=== PATIENT | male | born 1945 | race Caucasian/White ===

== ENCOUNTER 2018-04-03 09:46 | Emergency (ER) | payer MEDICARE ==
[~2018-04-03] VITALS: Ht 175.3 cm; Wt 93.4 kg
[2018-04-03] MEDS ORDERED: INVOKANA300 MG PO (09:58)
[2018-04-03] MEDS ORDERED: GLIPIZIDE 10 MG10 MG PO (09:58)
[2018-04-03] MEDS ORDERED: XANAX 0.5 MG0.5 MG PO (09:58)
[2018-04-03] MEDS ORDERED: HYDROCODONE-ACE15 ML PO (09:58)
[2018-04-03] MEDS ORDERED: COUMADIN 5 MG TA5 M1 PO (09:59)
[2018-04-03] MEDS ORDERED: LASIX 40 MG TAB40 M2 PO (09:59)
[2018-04-03] MEDS ORDERED: ONGLYZA5 MG PO (09:59)
[2018-04-03] MEDS ORDERED: VESICARE 5 MG TA5 MG PO (09:59)
[2018-04-03] MEDS ORDERED: ALDACTONE50 MG PO (09:59)
[2018-04-03] MEDS ORDERED: ASPIR 8181 MG PO (10:00)
[2018-04-03] MEDS ORDERED: COZAAR 50 MG TA50 M2 PO (10:00)
[2018-04-03] MEDS ORDERED: FLOMAX0.4 MG PO (10:00)
[2018-04-03] MEDS ORDERED: KEFLEX500 M1 PO (10:35)
[2018-04-03 10:46] VITALS: BP 162/83
== END 2018-04-03 10:47 | disposition home or self-care (01) ==
LOC: M.ERS 09:46
DX: L03.115 Cellulitis of right lower limb (principal); E11.9 Type 2 diabetes mellitus without complications; Z96.652 Presence of left artificial knee joint

== ENCOUNTER → 2018-04-19 | Outpatient (CLI) | payer MEDICARE ==
[~2018-04-19] MED LIST: ALDACTONE50 MG PO; ASPIR 8181 MG PO; COUMADIN 5 MG TA5 M1 PO; COZAAR 50 MG TA50 M2 PO; FLOMAX0.4 MG PO; GLIPIZIDE 10 MG10 MG PO; HYDROCODONE-ACE15 ML PO; INVOKANA300 MG PO; KEFLEX500 M1 PO; LASIX 40 MG TAB40 M2 PO; NORCO 7.5-3251 EACH PO; ONGLYZA5 MG PO; VESICARE 5 MG TA5 MG PO; XANAX 0.5 MG0.5 MG PO
== END ==
LOC: M.WC 08:48
DX: E11.622 Type 2 diabetes mellitus with other skin ulcer (principal); L97.212 Non-pressure chronic ulcer of right calf with fat layer exposed; I10 Essential (primary) hypertension; I48.91 Unspecified atrial fibrillation; I25.10 Atherosclerotic heart disease of native coronary artery without angina pectoris; E78.5 Hyperlipidemia, unspecified; M19.90 Unspecified osteoarthritis, unspecified site; Z95.0 Presence of cardiac pacemaker; Z96.652 Presence of left artificial knee joint

== ENCOUNTER → 2018-04-26 | Outpatient (CLI) | payer MEDICARE | LOC: M.WC 03:24 | DX: E11.622 Type 2 diabetes mellitus with other skin ulcer (principal); L97.212 Non-pressure chronic ulcer of right calf with fat layer exposed; I10 Essential (primary) hypertension; I48.91 Unspecified atrial fibrillation; I25.10 Atherosclerotic heart disease of native coronary artery without angina pectoris; E78.5 Hyperlipidemia, unspecified; M19.90 Unspecified osteoarthritis, unspecified site; Z95.0 Presence of cardiac pacemaker; Z96.652 Presence of left artificial knee joint ==

== ENCOUNTER → 2018-04-27 | Outpatient (CLI) | payer MEDICARE | LOC: M.WC 10:00 | DX: E11.622 Type 2 diabetes mellitus with other skin ulcer (principal); L97.212 Non-pressure chronic ulcer of right calf with fat layer exposed; I10 Essential (primary) hypertension; I48.91 Unspecified atrial fibrillation; I25.10 Atherosclerotic heart disease of native coronary artery without angina pectoris; E78.5 Hyperlipidemia, unspecified; M19.90 Unspecified osteoarthritis, unspecified site; Z95.0 Presence of cardiac pacemaker; Z96.652 Presence of left artificial knee joint ==

== ENCOUNTER → 2018-04-29 | Outpatient (CLI) | payer MEDICARE | LOC: M.WC 03:50 | DX: E11.622 Type 2 diabetes mellitus with other skin ulcer (principal); L97.212 Non-pressure chronic ulcer of right calf with fat layer exposed; I10 Essential (primary) hypertension; I25.10 Atherosclerotic heart disease of native coronary artery without angina pectoris; I48.91 Unspecified atrial fibrillation; E78.5 Hyperlipidemia, unspecified; M19.90 Unspecified osteoarthritis, unspecified site; Z95.0 Presence of cardiac pacemaker; Z96.652 Presence of left artificial knee joint ==

== ENCOUNTER → 2018-05-03 | Outpatient (CLI) | payer MEDICARE | LOC: M.WC 04:35 | DX: E11.622 Type 2 diabetes mellitus with other skin ulcer (principal); L97.212 Non-pressure chronic ulcer of right calf with fat layer exposed; I48.91 Unspecified atrial fibrillation; I25.10 Atherosclerotic heart disease of native coronary artery without angina pectoris; I10 Essential (primary) hypertension; E78.5 Hyperlipidemia, unspecified; M19.90 Unspecified osteoarthritis, unspecified site; Z95.0 Presence of cardiac pacemaker; Z96.652 Presence of left artificial knee joint ==

== ENCOUNTER → 2018-05-06 | Outpatient (CLI) | payer MEDICARE | LOC: M.WC 01:50 | DX: E11.622 Type 2 diabetes mellitus with other skin ulcer (principal); L97.212 Non-pressure chronic ulcer of right calf with fat layer exposed; I10 Essential (primary) hypertension; I48.91 Unspecified atrial fibrillation; I25.10 Atherosclerotic heart disease of native coronary artery without angina pectoris; E78.5 Hyperlipidemia, unspecified; M19.90 Unspecified osteoarthritis, unspecified site; Z95.0 Presence of cardiac pacemaker; Z96.652 Presence of left artificial knee joint ==

== ENCOUNTER 2018-05-09 08:00 | Inpatient (IN) | payer MEDICARE ==
[~2018-05-09] VITALS: Ht 175.3 cm; Wt 100.7 kg
[~2018-05-09 08:00] MED LIST changes: -NORCO 7.5-3251 EACH PO
[2018-05-09 10:00] VITALS: BP 142/80
[2018-05-09 10:05] LABS: HEMATOCRIT 39.9 % (42.0-52.0); HEMOGLOBIN 13.2 gm/dL (14.0-18.0); MCH 32.4 pg (26.0-34.0); MCHC 33.1 g/dL (28.0-37.0); MPV 8.1 fl. (7.2-11.1); NUCLEATED RBCS 0 /100WBC; PLATELET COUNT* 247 thou/uL (150-400); RBC 4.08 mil/uL (4.50-6.00); RDW-CV 13.5 % (10.5-14.5)
[2018-05-09 10:12] LABS: INR 2.6; PROTIME 25.4 Seconds (9.20-11.50)
[2018-05-09 10:51] LABS: ALBUMIN 3.1 g/dL (3.4-5.0); CALCIUM 9.6 mg/dL (8.5-10.1); POTASSIUM 4.4 mmol/L (3.5-5.1); TOTAL BILIRUBIN 0.4 mg/dL (<0.1-1.0); TOTAL PROTEIN 6.8 g/dL (6.4-8.2)
[2018-05-09 10:59] LABS: ABSOLUTE MONOCYTES 0.9 thou/uL (0.0-1.2); ABSOLUTE NEUTROPHILS 8.1 thou/uL (1.6-8.1); PLATELET ESTIMATE ADEQUATE
[2018-05-09] MEDS ORDERED: NORCO 7.5-3251 EACH PO (11:06)
--- NOTE | 2018-05-09 14:18 | EKG ---
[place] [address] ELECTROCARDIOGRAM REPORT Name: ERNST ARENAS Room: [address] ADM IN .R.#: [id number] Admission: 05/09/18 Attend Phys: Carlene Bunch MD Discharge: Date of : 43 Report #: [id number] THIS REPORT FOR: //name// [facility] Test Date: 2018-05-09 Test Time: 13:15:08 Pat Name: ERNST ARENAS Department: Room: [address] Gender: M Ribbon Winder: : 1945 Requested By: Elena St Order Number: [id number] Tatiana MD: Colton Christiansen Measurements Intervals [place] Rate: 67 P: 0 MN: 31 QRS: -60 QRSD: 168 T: 116 QT: 452 QTc: 478 Interpretive Statements Ventricular-paced rhythm No further analysis attempted due to paced rhythm No previous ECG available for comparison Electronically Signed On 05-09-2018 14:18:10 CDT by Colton Christiansen [email or web address] <ELECTRONICALLY SIGNED> By: Colton Christiansen MD, [facility] 05/09/18 1418 1315 1315 Colton Christiansen MD, [facility] /EPI
[2018-05-09 14:23] VITALS: BP 143/78
--- NOTE | 2018-05-09 20:00 | NUR ---
RECEIVED REPORT AND ASSUMED CARE OF PT, ASSESSMENT COMPLETED. RT LOWER LEG DRSG DRY AND INTACT. RT FOOT WARM AND MOBILE WITH STRONG PEDAL PULSES. ELEVATED ON PILLOW. TELEMETRY ON SHOWING V-PACED RHYTHM. WILL CONT TO MONITOR AND ASSIST NEEDED.
[2018-05-10] VITALS: BP 126/69
[2018-05-10 04:00] VITALS: BP 105/63; BP 147/70
[2018-05-10 04:47] LABS: INR 2.6; PROTIME 24.9 Seconds (9.20-11.50)
--- NOTE | 2018-05-10 06:30 | NUR ---
AWAKE FREQ DURING NIGHT. STATES RT LEG IS BURNING WITH SHOOTING PAIN. PO PAIN MED GIVEN BUT NOT EFFECTIVE. IV PAIN MED GIVEN WITH SOME RELIEF. VOIDING PER URINAL, STATES HAVING DIFFICULTY USING IT IN BED. NO CHANGE IN ASSESSMENT. TELEMETRY CONT TO SHOW V-PACED. PARTICAL HS GOAL OF SAFETY OBTAINED. HOURLY ROUNDING OBSERVED.
[2018-05-10 07:30] VITALS: BP 150/73
[2018-05-10 11:59] VITALS: BP 141/75
[2018-05-10 12:33] LABS: HEMOGLOBIN 12.4 gm/dL (14.0-18.0); MCHC 33.6 g/dL (28.0-37.0); MPV 7.6 fl. (7.2-11.1); RBC 3.77 mil/uL (4.50-6.00); RDW-CV 13.7 % (10.5-14.5); WBC 10.5 thou/uL (4.0-11.0)
[2018-05-10 12:57] LABS: CALCIUM 8.7 mg/dL (8.5-10.1); CREATININE 0.9 mg/dL (0.6-1.3); POTASSIUM 4.6 mmol/L (3.5-5.1)
[2018-05-10 15:35] VITALS: BP 152/73
[2018-05-10 17:02] VITALS: BP 152/73
[2018-05-10] MEDS ORDERED: KEFLEX500 M1 PO (17:02)
--- NOTE | 2018-05-10 18:01 | NUR ---
RECEIVED DISCHARGE ORDERS PER DR MARTIN. DR POPE WITH SURGERY OK WITH DC TODAY AND INSTRUCTED THE PATIENT TO F/U WITH HIM IN THE WOUND CARE CLINIC ON WEDNESDAY. INFECTIOUS DISEASE OK WITH DC TODAY AND ORDERED ORAL KEFLEX FOR THE PATIENT TO DC HOME WITH. NEW SCRIPT FOR KEFLEX CALLED INTO THE PATIENT'S PHARMACY BY THIS RN. IV DISCONTINUED. WHIZZER REMOVED. DISCHARGE PICTURE TAKEN OF PATIENTS WOUND ON HIS RLE. PATIENT AND HIS SPOUSE DENY ANY QUESTIONS OR CONCERNS AT DISCHARGE. LEAVING VIA WHEELCHAIR ACCOMPANIED BY NURSING STAFF AND HIS SPOUSE.
[2018-05-11 02:07] LABS: GLYCOHEMOGLOBIN (HGB A1C) 6.1 % (4.8-5.6)
--- NOTE | 2018-05-12 19:13 | CON ---
[address] [address] CONSULTATION Name: ERNST CORNELL Room: [address] IN .R.#: [id number] Admission: 05/09/18 Attend Phys: Carlene Bunch MD Discharge: 05/10/18 Date of : 43 Report #: [id number] THIS REPORT FOR: //name// CC: Carlene Cornejo DATE OF SERVICE: 05/09/2018 CONSULTATION: Infectious Diseases. HISTORY OF PRESENT ILLNESS: Mr Cornell is a 72-year-old white male admitted to [facility] earlier today because of cellulitis and wound on the right lower extremity. The patient suffered an abrasion-type injury in the first week of March on his right howard. A concrete gutter runoff scraped down his howard as he was moving the runoff drain. The patient did not think much of it. It bled for a little bit. He put Neosporin and a Band-Aid. In spite of this care, it did not get better. The patient went to the Emergency Room on 04/03/2018 and was given a prescription for Keflex. At that time, the ER described a small open wound with surrounding cellulitis. No drainage. No lymphangitis. The patient did not do better. The antibiotic was changed, I believe, to doxycycline. He was referred to the [facility], where he saw Dr. Le and did a bedside debridement and placement of a VAC. He returned to the [facility] Care Center a week later,and was noted to have excessive debris in the wound. He was admitted to the hospital and underwent a debridement in the operating room earlier today by Dr. St. Infectious Disease evaluation was requested. PAST MEDICAL HISTORY: Past history is significant for diabetes with hypertension, prostatic hypertrophy and anxiety. PAST SURGICAL HISTORY: Includes aortic valve replacement in 1996, a cardiac ablation approximately 10 years later, left knee replacement, pacemaker placement, back surgery x 2 and shoulder surgery. ALLERGIES: The patient is not aware of any drug allergies. MEDICATION RECONCILIATION: His current medications include aspirin 81 mg daily, Lasix 40 mg daily, spironolactone 25 mg daily, tamsulosin 0.4 mg daily, losartan 50 mg daily, Zosyn 3.375 every 8 hours, alprazolam 0.5 mg t.i.d., famotidine 20 mg b.i.d., vancomycin 1 gram b.i.d., warfarin 5 mg daily, glipizide 10 mg b.i.d., sliding scale insulin, p.r.n. morphine, Tylenol and magnesium oxide. FAMILY HISTORY: Noncontributory. SOCIAL HISTORY: The patient is . He has been living with his girlfriend for about the last year. He is retired [id number] [place] [address] CONSULTATION Name: ERNST CORNELL Brianna Room: [address]#: [id number] Admission: 05/09/18 Attend Phys: Carlene Bunch MD Discharge: 05/10/18 Date of : 43 Report #: [id number] He has no history of tobacco use. He had heavy alcohol use, but quit 15 years ago. REVIEW OF SYSTEMS: CONSTITUTIONAL: At this time, the patient says he feels fairly comfortable. He is not complaining of fevers, chills or sweats. SKIN: No skin complaints, except for the right leg as described. ENT: No complaints. CARDIOVASCULAR: The patient denies cough, chest pain or shortness of breath. He denies angina, syncope or palpitations. GASTROINTESTINAL: The patient denies nausea, vomiting, diarrhea or constipation. GENITOURINARY: No complaints. EXTREMITIES: Postoperative discomfort in the right leg. PHYSICAL EXAMINATION: GENERAL: On examination, the patient appears his stated age, alert, oriented, comfortable, not in any distress. VITAL SIGNS: Normal. The patient is afebrile. Blood pressure is 143/78. SKIN: Shows no rash, lesion or exanthem. A surgical wound is on the right lower leg. The surgeon described the postoperative wound as 6 x 7.5 x 0.7 cm, with debridement down to and including tendon. ENT EXAMINATION: Negative. MENTAL STATUS: Normal. NECK: Supple. HEART: Heart sounds S1, S2. Regular rate and rhythm, pacemaker present. Appears unremarkable. Surgical scar is well healed. LUNGS: Clear to anterior auscultation. ABDOMEN: Belly soft, not tender. EXTREMITIES: Excellent pulses. No edema. Surgical dressing is clean, dry and intact. It was not disturbed. LABORATORY DATA: White count is 10.0, hemoglobin 13.2 and platelet 247,000. Electrolytes are normal. BUN 25, creatinine 1.0, and glucose 143. Liver function tests show mild elevation with SGOT 40, SGPT 72 and alkaline phosphatase was normal. Culture from the Wound Care Center, 05/03/2018, grew methicillin-sensitive Staph aureus. Blood cultures x 2 and surgical cultures are pending. IMPRESSION: Traumatic wound with probable hematoma due to anticoagulation and secondary infection due to staph. I suggest we change the antibiotic to cefazolin 2 grams IV every 8 hours and stop the vancomycin and Zosyn. We will not need vancomycin levels. We should have results of cultures in the next 48-72 hours and can adjust the antibiotics if they show anything different than sensitive staph or strep. We will continue [address] [address] CONSULTATION Name: ERNST CORNELL Room: [address] IN [facility]#: [id number] Admission: 05/09/18 Attend Phys: Carlene Bunch MD Discharge: 05/10/18 Date of : 43 Report #: [id number] wound care per Dr. St. He may elect to replace the wound VAC now that the wound has been debrided. The patient should followup with the Wound Care Center for debridement, review of cultures and general assessment. I would like to check a thyroid function as well as hemoglobin A1c to make sure there is no metabolic impediment to wound healing. We are going to also check a zinc level as this could be associated with poor wound healing. I appreciate the opportunity of input in the care of this pleasant gentleman. Thank you for requesting Infectious Disease input. <ELECTRONICALLY SIGNED> By: Bucky Rojas MD 05/12/18 [phone] [id number] Rojas MD /nt
--- NOTE | 2018-05-14 10:06 | PATH ---
[address] [address] PATHOLOGY RPT PROCEDURE Name: ARNULFO CORNELL Room: [address] IN .R.#: [id number] Admission: 05/09/18 Date of : 43 Discharge: 05/10/18 Report #: [id number] Path Case #: [id number] [facility] Accession Number: [id number] . 01 Material submitted: . RIGHT CALF WOUND/TISSUE . 01 Clinical history: . Cellulitis, non healing traumatic wound . 02 Diagnosis: Right calf wound: - Benign skin with nonspecific ulceration, necrosis and acute inflammation in association with severe calcifying arteriosclerosis. . (VICKI:mml; 05/11/18) [facility]/05/11/2018 . 02 Electronically signed: . Christian Larson MD, Pathologist NPI- [id number] . 01 Gross description: . Received in formalin labeled "Arnulfo Cornell, right calf wound," is a segment of dark gordon-brown, granular and indurated skin with a small amount of attached underlying pale yellow, lobulated adipose tissue measuring 3.4 x 2.8 x 0.4 cm in greatest dimensions. Sectioning reveals gordon-brown cut surfaces. Regulatory Affairs Intern tissue is submitted in cassette A1. (DAC; 05/10/2018) XDC/XDC . 02 Pathologist provided ICD-10: I70.232 . 02 CPT . 451116 Performed at: [address], [place] [id number] MD Codey Stewart MD Phone: [phone] Performed at: 02 [facility] [address], [place], [place] [id number] MD Christian Larson MD Phone: [phone]
--- NOTE | 2018-05-23 09:46 | OP ---
[address] [address] OPERATIVE REPORT Name: ERNST ARENAS Room: [address]#: [id number] Admission: 05/09/18 Attend Phys: Carlene Bunch MD Discharge: 05/10/18 Date of : 43 Report #: [id number] THIS REPORT FOR: //name// CC: Carlene Cornejo DATE OF SERVICE: 05/09/2018 PREOPERATIVE DIAGNOSES: Necrotic traumatic wound of the right lower extremity and cellulitis. POSTOPERATIVE DIAGNOSES: Necrotic traumatic wound of the right lower extremity and cellulitis. OPERATIVE PROCEDURE: Excisional debridement down to tendon area 6 x 7.5 x 0.7 cm of the right lower extremity. ANESTHESIA: General endotracheal with 0.5% Marcaine infiltrated around the wound site. DESCRIPTION OF PROCEDURE: The patient was placed under general endotracheal anesthesia and the right lower extremity was carefully prepped and draped and elevated in a sterile fashion. A timeout taken. Antibiotics had already been administered. I began by infiltrating around the proposed operative site with 0.5% Marcaine and with the pickups and a #10 scalpel blade, I sharply debrided this necrotic skin and subcutaneous tissue down to and including a superficial layer of tendon was debrided off of the right medial posterior calf back to healthy bleeding tissue, which was then controlled with cautery. I then irrigated the wound. There was no purulence seen and once the area was sharply debrided, I re-injected a second dose of the 0.5% Marcaine and then packed the wounds with Aquacel sheets and then gauze and then Kerlix ending the operative procedure. Estimated blood loss 5 mL. Sponge and instrument counts correct. The patient was extubated, returned to recovery in stable condition. <ELECTRONICALLY SIGNED> By: Elena St MD 05/23/18 [address] MD /nt
== END 2018-05-10 17:30 | disposition home or self-care (01) | DRG 982 ==
LOC: M.WC 08:00 → M.2W 09:02 → M.WC 05-10 08:00 → M.2W 05-10 17:30
PROVIDERS: Internal Medicine Infectious Disease; Surgery; ADMIT Internal Medicine
PROC: 0LBN0ZZ Excision of Right Lower Leg Tendon, Open Approach (ICD-10-PCS; principal; 2018-05-09)
DX: L03.115 Cellulitis of right lower limb (principal); I96 Gangrene, not elsewhere classified; E44.1 Mild protein-calorie malnutrition; E11.9 Type 2 diabetes mellitus without complications; N40.0 Benign prostatic hyperplasia without lower urinary tract symptoms; F41.9 Anxiety disorder, unspecified; E66.9 Obesity, unspecified; S80.921A Unspecified superficial injury of right lower leg, initial encounter; X58.XXXA Exposure to other specified factors, initial encounter; B95.61 Methicillin susceptible Staphylococcus aureus infection as the cause of diseases classified elsewhere; I10 Essential (primary) hypertension; E78.5 Hyperlipidemia, unspecified; I48.91 Unspecified atrial fibrillation; Z96.649 Presence of unspecified artificial hip joint; Z95.2 Presence of prosthetic heart valve; Z96.652 Presence of left artificial knee joint; Z79.2 Long term (current) use of antibiotics; Z79.01 Long term (current) use of anticoagulants; Z79.899 Other long term (current) drug therapy; Z95.0 Presence of cardiac pacemaker; Z98.1 Arthrodesis status; Z90.49 Acquired absence of other specified parts of digestive tract; Z68.32 Body mass index [BMI] 32.0-32.9, adult; Y93.89 Activity, other specified; Y92.89 Other specified places as the place of occurrence of the external cause; Y99.8 Other external cause status; Z79.4 Long term (current) use of insulin; Z80.8 Family history of malignant neoplasm of other organs or systems; Z82.3 Family history of stroke; Z82.5 Family history of asthma and other chronic lower respiratory diseases; Z82.49 Family history of ischemic heart disease and other diseases of the circulatory system

== ENCOUNTER → 2018-05-12 | Outpatient (CLI) | payer MEDICARE ==
[~2018-05-12] MED LIST changes: +NORCO 7.5-3251 EACH PO
== END ==
LOC: M.WC 09:50
DX: E11.622 Type 2 diabetes mellitus with other skin ulcer (principal); L97.212 Non-pressure chronic ulcer of right calf with fat layer exposed; I10 Essential (primary) hypertension; I48.91 Unspecified atrial fibrillation; I25.10 Atherosclerotic heart disease of native coronary artery without angina pectoris; E78.5 Hyperlipidemia, unspecified; Z95.0 Presence of cardiac pacemaker; Z96.651 Presence of right artificial knee joint

== ENCOUNTER → 2018-05-13 | Outpatient (CLI) | payer MEDICARE | LOC: M.WC 01:48 | DX: E11.622 Type 2 diabetes mellitus with other skin ulcer (principal); L97.212 Non-pressure chronic ulcer of right calf with fat layer exposed; I48.91 Unspecified atrial fibrillation; I25.10 Atherosclerotic heart disease of native coronary artery without angina pectoris; I10 Essential (primary) hypertension; E78.5 Hyperlipidemia, unspecified; M19.90 Unspecified osteoarthritis, unspecified site; Z95.0 Presence of cardiac pacemaker; Z96.651 Presence of right artificial knee joint ==

== ENCOUNTER → 2018-05-16 | Outpatient (CLI) | payer MEDICARE | LOC: M.WC 00:52 | DX: E11.622 Type 2 diabetes mellitus with other skin ulcer (principal); L97.212 Non-pressure chronic ulcer of right calf with fat layer exposed; I48.91 Unspecified atrial fibrillation; I10 Essential (primary) hypertension; I25.10 Atherosclerotic heart disease of native coronary artery without angina pectoris; E78.5 Hyperlipidemia, unspecified; M19.90 Unspecified osteoarthritis, unspecified site; Z95.0 Presence of cardiac pacemaker; Z96.652 Presence of left artificial knee joint ==

== ENCOUNTER → 2018-05-18 | Outpatient (CLI) | payer MEDICARE | LOC: M.WC 04:11 | DX: E11.622 Type 2 diabetes mellitus with other skin ulcer (principal); L97.212 Non-pressure chronic ulcer of right calf with fat layer exposed; I48.91 Unspecified atrial fibrillation; I25.10 Atherosclerotic heart disease of native coronary artery without angina pectoris; I10 Essential (primary) hypertension; E78.5 Hyperlipidemia, unspecified; M19.90 Unspecified osteoarthritis, unspecified site; Z95.1 Presence of aortocoronary bypass graft; Z96.652 Presence of left artificial knee joint ==

== ENCOUNTER → 2018-05-20 | Outpatient (CLI) | payer MEDICARE | LOC: M.WC 01:20 | DX: E11.622 Type 2 diabetes mellitus with other skin ulcer (principal); L97.811 Non-pressure chronic ulcer of other part of right lower leg limited to breakdown of skin; I10 Essential (primary) hypertension; I48.91 Unspecified atrial fibrillation; I25.10 Atherosclerotic heart disease of native coronary artery without angina pectoris; E78.5 Hyperlipidemia, unspecified; M19.90 Unspecified osteoarthritis, unspecified site; Z95.0 Presence of cardiac pacemaker; Z96.652 Presence of left artificial knee joint ==

== ENCOUNTER → 2018-05-23 | Outpatient (CLI) | payer MEDICARE | LOC: M.WC 00:52 | DX: E11.622 Type 2 diabetes mellitus with other skin ulcer (principal); L97.212 Non-pressure chronic ulcer of right calf with fat layer exposed; I10 Essential (primary) hypertension; I48.91 Unspecified atrial fibrillation; I25.10 Atherosclerotic heart disease of native coronary artery without angina pectoris; E78.5 Hyperlipidemia, unspecified; M19.90 Unspecified osteoarthritis, unspecified site; Z95.0 Presence of cardiac pacemaker; Z96.652 Presence of left artificial knee joint ==

== ENCOUNTER → 2018-05-25 | Outpatient (CLI) | payer MEDICARE | LOC: M.WC 03:20 | DX: E11.622 Type 2 diabetes mellitus with other skin ulcer (principal); L97.811 Non-pressure chronic ulcer of other part of right lower leg limited to breakdown of skin; I10 Essential (primary) hypertension; I48.91 Unspecified atrial fibrillation; I25.10 Atherosclerotic heart disease of native coronary artery without angina pectoris; E78.5 Hyperlipidemia, unspecified; M19.90 Unspecified osteoarthritis, unspecified site; Z96.652 Presence of left artificial knee joint; Z95.0 Presence of cardiac pacemaker ==

== ENCOUNTER → 2018-05-27 | Outpatient (CLI) | payer MEDICARE | LOC: M.WC 01:58 | DX: E11.622 Type 2 diabetes mellitus with other skin ulcer (principal); L97.212 Non-pressure chronic ulcer of right calf with fat layer exposed; I48.91 Unspecified atrial fibrillation; I25.10 Atherosclerotic heart disease of native coronary artery without angina pectoris; I10 Essential (primary) hypertension; E78.5 Hyperlipidemia, unspecified; M19.90 Unspecified osteoarthritis, unspecified site; Z96.652 Presence of left artificial knee joint ==

== ENCOUNTER → 2018-05-30 | Outpatient (CLI) | payer MEDICARE | LOC: M.WC 06:14 | DX: E11.622 Type 2 diabetes mellitus with other skin ulcer (principal); L97.212 Non-pressure chronic ulcer of right calf with fat layer exposed; I48.91 Unspecified atrial fibrillation; I25.10 Atherosclerotic heart disease of native coronary artery without angina pectoris; I10 Essential (primary) hypertension; E78.5 Hyperlipidemia, unspecified; M19.90 Unspecified osteoarthritis, unspecified site; Z96.652 Presence of left artificial knee joint ==

== ENCOUNTER → 2018-06-02 | Outpatient (CLI) | payer MEDICARE | LOC: M.WC 02:23 | DX: E11.622 Type 2 diabetes mellitus with other skin ulcer (principal); L97.212 Non-pressure chronic ulcer of right calf with fat layer exposed; E78.5 Hyperlipidemia, unspecified; I48.91 Unspecified atrial fibrillation; I25.10 Atherosclerotic heart disease of native coronary artery without angina pectoris; I10 Essential (primary) hypertension; M19.90 Unspecified osteoarthritis, unspecified site; N40.0 Benign prostatic hyperplasia without lower urinary tract symptoms; Z96.652 Presence of left artificial knee joint ==

== ENCOUNTER → 2018-06-06 | Outpatient (CLI) | payer MEDICARE | LOC: M.WC 01:57 | DX: E11.622 Type 2 diabetes mellitus with other skin ulcer (principal); L97.212 Non-pressure chronic ulcer of right calf with fat layer exposed; I48.91 Unspecified atrial fibrillation; I25.10 Atherosclerotic heart disease of native coronary artery without angina pectoris; I10 Essential (primary) hypertension; E78.5 Hyperlipidemia, unspecified; M19.90 Unspecified osteoarthritis, unspecified site; Z96.652 Presence of left artificial knee joint ==

== ENCOUNTER → 2018-06-08 | Outpatient (CLI) | payer MEDICARE | LOC: M.WC 04:34 | DX: E11.622 Type 2 diabetes mellitus with other skin ulcer (principal); L97.212 Non-pressure chronic ulcer of right calf with fat layer exposed; I48.91 Unspecified atrial fibrillation; I25.10 Atherosclerotic heart disease of native coronary artery without angina pectoris; E78.5 Hyperlipidemia, unspecified; I10 Essential (primary) hypertension; M19.90 Unspecified osteoarthritis, unspecified site; Z96.652 Presence of left artificial knee joint ==

== ENCOUNTER → 2018-06-10 | Outpatient (CLI) | payer MEDICARE | LOC: M.WC 01:20 | DX: E11.622 Type 2 diabetes mellitus with other skin ulcer (principal); L97.212 Non-pressure chronic ulcer of right calf with fat layer exposed; I48.91 Unspecified atrial fibrillation; I25.10 Atherosclerotic heart disease of native coronary artery without angina pectoris; I10 Essential (primary) hypertension; E78.5 Hyperlipidemia, unspecified; Z96.652 Presence of left artificial knee joint ==

== ENCOUNTER → 2018-06-14 | Outpatient (CLI) | payer MEDICARE | LOC: M.WC 03:40 | DX: E11.622 Type 2 diabetes mellitus with other skin ulcer (principal); L97.212 Non-pressure chronic ulcer of right calf with fat layer exposed; I48.91 Unspecified atrial fibrillation; I10 Essential (primary) hypertension; I25.10 Atherosclerotic heart disease of native coronary artery without angina pectoris; E78.5 Hyperlipidemia, unspecified; M19.90 Unspecified osteoarthritis, unspecified site; Z96.652 Presence of left artificial knee joint ==

== ENCOUNTER → 2018-06-16 | Outpatient (CLI) | payer MEDICARE | LOC: M.WC 08:00 | DX: E11.622 Type 2 diabetes mellitus with other skin ulcer (principal); L97.212 Non-pressure chronic ulcer of right calf with fat layer exposed; I48.91 Unspecified atrial fibrillation; I25.10 Atherosclerotic heart disease of native coronary artery without angina pectoris; I10 Essential (primary) hypertension; E78.5 Hyperlipidemia, unspecified; M19.90 Unspecified osteoarthritis, unspecified site; Z96.652 Presence of left artificial knee joint ==

== ENCOUNTER → 2018-06-20 | Outpatient (CLI) | payer MEDICARE | LOC: M.WC 01:26 | DX: E11.622 Type 2 diabetes mellitus with other skin ulcer (principal); L97.212 Non-pressure chronic ulcer of right calf with fat layer exposed; I87.2 Venous insufficiency (chronic) (peripheral); I48.91 Unspecified atrial fibrillation; I25.10 Atherosclerotic heart disease of native coronary artery without angina pectoris; I10 Essential (primary) hypertension; E78.5 Hyperlipidemia, unspecified; M19.90 Unspecified osteoarthritis, unspecified site; Z95.0 Presence of cardiac pacemaker; Z95.4 Presence of other heart-valve replacement; Z96.652 Presence of left artificial knee joint ==

== ENCOUNTER → 2018-06-22 | Outpatient (CLI) | payer MEDICARE | LOC: M.WC 03:02 | DX: E11.622 Type 2 diabetes mellitus with other skin ulcer (principal); L97.212 Non-pressure chronic ulcer of right calf with fat layer exposed; E78.5 Hyperlipidemia, unspecified; I48.91 Unspecified atrial fibrillation; I25.10 Atherosclerotic heart disease of native coronary artery without angina pectoris; I10 Essential (primary) hypertension; M19.90 Unspecified osteoarthritis, unspecified site; Z96.652 Presence of left artificial knee joint ==

== ENCOUNTER → 2018-06-24 | Outpatient (CLI) | payer MEDICARE | LOC: M.WC 02:53 | DX: E11.622 Type 2 diabetes mellitus with other skin ulcer (principal); L97.212 Non-pressure chronic ulcer of right calf with fat layer exposed; E78.5 Hyperlipidemia, unspecified; I48.91 Unspecified atrial fibrillation; I25.10 Atherosclerotic heart disease of native coronary artery without angina pectoris; I10 Essential (primary) hypertension; M19.90 Unspecified osteoarthritis, unspecified site ==

== ENCOUNTER → 2018-06-27 | Outpatient (CLI) | payer MEDICARE | LOC: M.WC 01:41 | DX: E11.622 Type 2 diabetes mellitus with other skin ulcer (principal); L97.212 Non-pressure chronic ulcer of right calf with fat layer exposed; E78.5 Hyperlipidemia, unspecified; I48.91 Unspecified atrial fibrillation; I25.10 Atherosclerotic heart disease of native coronary artery without angina pectoris; I10 Essential (primary) hypertension; M19.90 Unspecified osteoarthritis, unspecified site; Z96.652 Presence of left artificial knee joint ==

== ENCOUNTER → 2018-06-30 | Outpatient (CLI) | payer MEDICARE | LOC: M.WC 01:49 | DX: E11.622 Type 2 diabetes mellitus with other skin ulcer (principal); L97.212 Non-pressure chronic ulcer of right calf with fat layer exposed; E78.5 Hyperlipidemia, unspecified; I48.91 Unspecified atrial fibrillation; I25.10 Atherosclerotic heart disease of native coronary artery without angina pectoris; I10 Essential (primary) hypertension; M19.90 Unspecified osteoarthritis, unspecified site; Z96.652 Presence of left artificial knee joint ==

== ENCOUNTER → 2018-07-04 | Outpatient (CLI) | payer MEDICARE | LOC: M.WC 01:06 | DX: E11.622 Type 2 diabetes mellitus with other skin ulcer (principal); L97.212 Non-pressure chronic ulcer of right calf with fat layer exposed; E78.5 Hyperlipidemia, unspecified; I48.91 Unspecified atrial fibrillation; I25.10 Atherosclerotic heart disease of native coronary artery without angina pectoris; I10 Essential (primary) hypertension; M19.90 Unspecified osteoarthritis, unspecified site; Z96.652 Presence of left artificial knee joint ==

== ENCOUNTER → 2018-07-07 | Outpatient (CLI) | payer MEDICARE | LOC: M.WC 04:49 | DX: E11.622 Type 2 diabetes mellitus with other skin ulcer (principal); L97.212 Non-pressure chronic ulcer of right calf with fat layer exposed; E78.5 Hyperlipidemia, unspecified; I48.91 Unspecified atrial fibrillation; I25.10 Atherosclerotic heart disease of native coronary artery without angina pectoris; I10 Essential (primary) hypertension; M19.90 Unspecified osteoarthritis, unspecified site; Z96.652 Presence of left artificial knee joint ==

== ENCOUNTER → 2018-07-11 | Outpatient (CLI) | payer MEDICARE | LOC: M.WC 00:49 | DX: E11.622 Type 2 diabetes mellitus with other skin ulcer (principal); L97.212 Non-pressure chronic ulcer of right calf with fat layer exposed; I48.91 Unspecified atrial fibrillation; I25.10 Atherosclerotic heart disease of native coronary artery without angina pectoris; I10 Essential (primary) hypertension; E78.5 Hyperlipidemia, unspecified; M19.90 Unspecified osteoarthritis, unspecified site; Z96.652 Presence of left artificial knee joint ==

== ENCOUNTER → 2018-07-14 | Outpatient (CLI) | payer MEDICARE | LOC: M.WC 04:56 | DX: E11.622 Type 2 diabetes mellitus with other skin ulcer (principal); L97.812 Non-pressure chronic ulcer of other part of right lower leg with fat layer exposed; I48.91 Unspecified atrial fibrillation; I25.10 Atherosclerotic heart disease of native coronary artery without angina pectoris; I10 Essential (primary) hypertension; E78.5 Hyperlipidemia, unspecified; M19.90 Unspecified osteoarthritis, unspecified site; Z96.652 Presence of left artificial knee joint ==

== ENCOUNTER → 2018-07-18 | Outpatient (CLI) | payer MEDICARE | LOC: M.WC 01:20 | DX: E11.622 Type 2 diabetes mellitus with other skin ulcer (principal); L97.212 Non-pressure chronic ulcer of right calf with fat layer exposed; E78.5 Hyperlipidemia, unspecified; I48.91 Unspecified atrial fibrillation; I25.10 Atherosclerotic heart disease of native coronary artery without angina pectoris; I10 Essential (primary) hypertension; M19.90 Unspecified osteoarthritis, unspecified site; Z96.652 Presence of left artificial knee joint ==

== ENCOUNTER → 2018-07-21 | Outpatient (CLI) | payer MEDICARE | LOC: M.WC 05:10 | DX: E11.622 Type 2 diabetes mellitus with other skin ulcer (principal); L97.212 Non-pressure chronic ulcer of right calf with fat layer exposed; E78.5 Hyperlipidemia, unspecified; I48.91 Unspecified atrial fibrillation; I25.10 Atherosclerotic heart disease of native coronary artery without angina pectoris; I10 Essential (primary) hypertension; M19.90 Unspecified osteoarthritis, unspecified site; Z96.652 Presence of left artificial knee joint ==

== ENCOUNTER → 2018-07-25 | Outpatient (CLI) | payer MEDICARE | LOC: M.WC 02:00 | DX: E11.622 Type 2 diabetes mellitus with other skin ulcer (principal); L97.212 Non-pressure chronic ulcer of right calf with fat layer exposed; E78.5 Hyperlipidemia, unspecified; I48.91 Unspecified atrial fibrillation; I25.10 Atherosclerotic heart disease of native coronary artery without angina pectoris; I10 Essential (primary) hypertension; M19.90 Unspecified osteoarthritis, unspecified site; Z96.652 Presence of left artificial knee joint ==

== ENCOUNTER → 2018-07-28 | Outpatient (CLI) | payer MEDICARE | LOC: M.WC 05:55 | DX: E11.622 Type 2 diabetes mellitus with other skin ulcer (principal); L97.212 Non-pressure chronic ulcer of right calf with fat layer exposed; I48.91 Unspecified atrial fibrillation; I25.10 Atherosclerotic heart disease of native coronary artery without angina pectoris; I10 Essential (primary) hypertension; M19.90 Unspecified osteoarthritis, unspecified site; Z96.652 Presence of left artificial knee joint ==

== ENCOUNTER → 2018-08-01 | Outpatient (CLI) | payer MEDICARE | LOC: M.WC 01:45 | DX: E11.622 Type 2 diabetes mellitus with other skin ulcer (principal); L97.812 Non-pressure chronic ulcer of other part of right lower leg with fat layer exposed; E78.5 Hyperlipidemia, unspecified; I48.91 Unspecified atrial fibrillation; I25.10 Atherosclerotic heart disease of native coronary artery without angina pectoris; I10 Essential (primary) hypertension; M19.90 Unspecified osteoarthritis, unspecified site; Z96.652 Presence of left artificial knee joint ==

== ENCOUNTER → 2018-08-04 | Outpatient (CLI) | payer MEDICARE | LOC: M.WC 04:38 | DX: E11.622 Type 2 diabetes mellitus with other skin ulcer (principal); L97.212 Non-pressure chronic ulcer of right calf with fat layer exposed; I48.91 Unspecified atrial fibrillation; I25.10 Atherosclerotic heart disease of native coronary artery without angina pectoris; I10 Essential (primary) hypertension; E78.5 Hyperlipidemia, unspecified; M19.90 Unspecified osteoarthritis, unspecified site; Z96.652 Presence of left artificial knee joint ==

== ENCOUNTER → 2018-08-08 | Outpatient (CLI) | payer MEDICARE | LOC: M.WC 01:23 | DX: E11.622 Type 2 diabetes mellitus with other skin ulcer (principal); L97.212 Non-pressure chronic ulcer of right calf with fat layer exposed; E78.5 Hyperlipidemia, unspecified; I48.91 Unspecified atrial fibrillation; I25.10 Atherosclerotic heart disease of native coronary artery without angina pectoris; I10 Essential (primary) hypertension; M19.90 Unspecified osteoarthritis, unspecified site; Z96.652 Presence of left artificial knee joint ==

== ENCOUNTER → 2018-08-15 | Outpatient (CLI) | payer MEDICARE | LOC: M.WC 00:59 | DX: E11.622 Type 2 diabetes mellitus with other skin ulcer (principal); L97.212 Non-pressure chronic ulcer of right calf with fat layer exposed; E78.5 Hyperlipidemia, unspecified; I48.91 Unspecified atrial fibrillation; I25.10 Atherosclerotic heart disease of native coronary artery without angina pectoris; I10 Essential (primary) hypertension; M19.90 Unspecified osteoarthritis, unspecified site; Z96.652 Presence of left artificial knee joint ==

== ENCOUNTER → 2018-08-22 | Outpatient (CLI) | payer MEDICARE | LOC: M.WC 01:21 | DX: E11.622 Type 2 diabetes mellitus with other skin ulcer (principal); L97.212 Non-pressure chronic ulcer of right calf with fat layer exposed; E78.5 Hyperlipidemia, unspecified; I48.91 Unspecified atrial fibrillation; I25.10 Atherosclerotic heart disease of native coronary artery without angina pectoris; I10 Essential (primary) hypertension; M19.90 Unspecified osteoarthritis, unspecified site; Z96.652 Presence of left artificial knee joint ==

== ENCOUNTER → 2018-08-29 | Outpatient (CLI) | payer MEDICARE | LOC: M.WC 00:59 | DX: E11.622 Type 2 diabetes mellitus with other skin ulcer (principal); L97.812 Non-pressure chronic ulcer of other part of right lower leg with fat layer exposed; I48.91 Unspecified atrial fibrillation; I25.10 Atherosclerotic heart disease of native coronary artery without angina pectoris; I10 Essential (primary) hypertension; E78.5 Hyperlipidemia, unspecified; M19.90 Unspecified osteoarthritis, unspecified site; Z96.652 Presence of left artificial knee joint ==

== ENCOUNTER → 2018-09-05 | Outpatient (CLI) | payer MEDICARE | LOC: M.WC 07:49 | DX: E11.622 Type 2 diabetes mellitus with other skin ulcer (principal); L97.212 Non-pressure chronic ulcer of right calf with fat layer exposed; E78.5 Hyperlipidemia, unspecified; I48.91 Unspecified atrial fibrillation; I25.10 Atherosclerotic heart disease of native coronary artery without angina pectoris; I10 Essential (primary) hypertension; M19.90 Unspecified osteoarthritis, unspecified site; Z96.652 Presence of left artificial knee joint ==

== ENCOUNTER → 2018-09-12 | Outpatient (CLI) | payer MEDICARE | LOC: M.WC 00:56 | DX: E11.622 Type 2 diabetes mellitus with other skin ulcer (principal); L97.212 Non-pressure chronic ulcer of right calf with fat layer exposed; E78.5 Hyperlipidemia, unspecified; I48.91 Unspecified atrial fibrillation; I25.10 Atherosclerotic heart disease of native coronary artery without angina pectoris; I10 Essential (primary) hypertension; M19.90 Unspecified osteoarthritis, unspecified site; Z96.652 Presence of left artificial knee joint ==

== ENCOUNTER → 2018-09-19 | Outpatient (CLI) | payer MEDICARE | LOC: M.WC 02:31 | DX: E11.622 Type 2 diabetes mellitus with other skin ulcer (principal); L97.212 Non-pressure chronic ulcer of right calf with fat layer exposed; E78.5 Hyperlipidemia, unspecified; I48.91 Unspecified atrial fibrillation; I25.10 Atherosclerotic heart disease of native coronary artery without angina pectoris; I10 Essential (primary) hypertension; M19.90 Unspecified osteoarthritis, unspecified site; Z96.652 Presence of left artificial knee joint ==

== ENCOUNTER → 2018-09-26 | Outpatient (CLI) | payer MEDICARE | LOC: M.WC 00:51 | DX: E11.622 Type 2 diabetes mellitus with other skin ulcer (principal); L97.212 Non-pressure chronic ulcer of right calf with fat layer exposed; I10 Essential (primary) hypertension; I48.91 Unspecified atrial fibrillation; I25.10 Atherosclerotic heart disease of native coronary artery without angina pectoris; M19.90 Unspecified osteoarthritis, unspecified site ==

== ENCOUNTER → 2018-10-05 | Outpatient (CLI) | payer MEDICARE | LOC: M.WC 01:49 | DX: E11.622 Type 2 diabetes mellitus with other skin ulcer (principal); L97.212 Non-pressure chronic ulcer of right calf with fat layer exposed; L97.811 Non-pressure chronic ulcer of other part of right lower leg limited to breakdown of skin; E78.5 Hyperlipidemia, unspecified; I48.91 Unspecified atrial fibrillation; I25.10 Atherosclerotic heart disease of native coronary artery without angina pectoris; I10 Essential (primary) hypertension; M19.90 Unspecified osteoarthritis, unspecified site; Z96.652 Presence of left artificial knee joint ==

== ENCOUNTER → 2018-10-07 | Outpatient (CLI) | payer MEDICARE | LOC: M.WC 08:00 | DX: E11.622 Type 2 diabetes mellitus with other skin ulcer (principal); L97.212 Non-pressure chronic ulcer of right calf with fat layer exposed; L97.812 Non-pressure chronic ulcer of other part of right lower leg with fat layer exposed; E78.5 Hyperlipidemia, unspecified; I48.91 Unspecified atrial fibrillation; I25.10 Atherosclerotic heart disease of native coronary artery without angina pectoris; I10 Essential (primary) hypertension; M19.90 Unspecified osteoarthritis, unspecified site; Z96.652 Presence of left artificial knee joint ==

== ENCOUNTER → 2018-10-10 | Outpatient (CLI) | payer MEDICARE | LOC: M.WC 02:01 | DX: E11.622 Type 2 diabetes mellitus with other skin ulcer (principal); L97.218 Non-pressure chronic ulcer of right calf with other specified severity; E78.5 Hyperlipidemia, unspecified; I48.91 Unspecified atrial fibrillation; I25.10 Atherosclerotic heart disease of native coronary artery without angina pectoris; I10 Essential (primary) hypertension; M19.90 Unspecified osteoarthritis, unspecified site; Z96.652 Presence of left artificial knee joint ==

== ENCOUNTER → 2020-08-19 | Outpatient (CLI) | payer MEDICARE | LOC: M.WC 08:57 | PROVIDERS: ATTEND Surgery | DX: E11.622 Type 2 diabetes mellitus with other skin ulcer (principal); I87.332 Chronic venous hypertension (idiopathic) with ulcer and inflammation of left lower extremity; L97.222 Non-pressure chronic ulcer of left calf with fat layer exposed; L03.116 Cellulitis of left lower limb; I89.0 Lymphedema, not elsewhere classified; I11.0 Hypertensive heart disease with heart failure; I50.9 Heart failure, unspecified; I48.91 Unspecified atrial fibrillation; I25.10 Atherosclerotic heart disease of native coronary artery without angina pectoris; E78.5 Hyperlipidemia, unspecified; M19.90 Unspecified osteoarthritis, unspecified site; Z95.0 Presence of cardiac pacemaker; Z96.652 Presence of left artificial knee joint ==

== ENCOUNTER → 2020-08-26 | Outpatient (CLI) | payer MEDICARE | LOC: M.WC 08:22 | PROVIDERS: ATTEND Surgery | DX: E11.622 Type 2 diabetes mellitus with other skin ulcer (principal); I87.332 Chronic venous hypertension (idiopathic) with ulcer and inflammation of left lower extremity; L97.222 Non-pressure chronic ulcer of left calf with fat layer exposed; L03.116 Cellulitis of left lower limb; I89.0 Lymphedema, not elsewhere classified; I48.91 Unspecified atrial fibrillation; I25.10 Atherosclerotic heart disease of native coronary artery without angina pectoris; I11.0 Hypertensive heart disease with heart failure; I50.9 Heart failure, unspecified; E78.5 Hyperlipidemia, unspecified; M19.90 Unspecified osteoarthritis, unspecified site; Z96.652 Presence of left artificial knee joint ==

== ENCOUNTER → 2020-09-02 | Outpatient (CLI) | payer MEDICARE | LOC: M.WC 08:14 | PROVIDERS: ATTEND Surgery | DX: I87.332 Chronic venous hypertension (idiopathic) with ulcer and inflammation of left lower extremity (principal); E11.622 Type 2 diabetes mellitus with other skin ulcer; L97.222 Non-pressure chronic ulcer of left calf with fat layer exposed; L03.116 Cellulitis of left lower limb; I89.0 Lymphedema, not elsewhere classified; I48.91 Unspecified atrial fibrillation; I25.10 Atherosclerotic heart disease of native coronary artery without angina pectoris; E78.5 Hyperlipidemia, unspecified; M19.90 Unspecified osteoarthritis, unspecified site; N40.0 Benign prostatic hyperplasia without lower urinary tract symptoms; I11.0 Hypertensive heart disease with heart failure; I50.9 Heart failure, unspecified; Z96.652 Presence of left artificial knee joint; Z79.84 Long term (current) use of oral hypoglycemic drugs; Z79.01 Long term (current) use of anticoagulants ==

== ENCOUNTER → 2020-09-09 | Outpatient (CLI) | payer MEDICARE | LOC: M.WC 08:24 | PROVIDERS: ATTEND Surgery | DX: E11.622 Type 2 diabetes mellitus with other skin ulcer (principal); I87.332 Chronic venous hypertension (idiopathic) with ulcer and inflammation of left lower extremity; L97.222 Non-pressure chronic ulcer of left calf with fat layer exposed; L03.116 Cellulitis of left lower limb; I89.0 Lymphedema, not elsewhere classified; I48.91 Unspecified atrial fibrillation; I25.10 Atherosclerotic heart disease of native coronary artery without angina pectoris; E78.5 Hyperlipidemia, unspecified; M19.90 Unspecified osteoarthritis, unspecified site; N40.0 Benign prostatic hyperplasia without lower urinary tract symptoms; I11.0 Hypertensive heart disease with heart failure; I50.9 Heart failure, unspecified; Z96.652 Presence of left artificial knee joint ==

== ENCOUNTER → 2020-09-12 | Outpatient (CLI) | payer MEDICARE ==
[~2020-09-12] MED LIST changes: +AZITHROMYC200 MG/52 PO; +CEFTRIAXONE2 G1 IM; +COZAAR 50 MG TA50 M1 PO; -COZAAR 50 MG TA50 M2 PO; +DEXAMETHASONE 44 M1 PO; +FINASTERIDE5 MG PO; +LOPRESSOR50 MG PO; +METOLAZONE 5 MG5 MG PO; +NORCO 10-325 T1 EACH PO; +SUPER THERAVIT1 EACH PO; +TOPROL XL25 MG PO; +TYLENOL325 MG PO; +VENTOLIN HFA 1818 GM INH
== END ==
LOC: M.ULTRA 12:47
PROVIDERS: ATTEND Surgery
DX: I87.332 Chronic venous hypertension (idiopathic) with ulcer and inflammation of left lower extremity (principal); E11.622 Type 2 diabetes mellitus with other skin ulcer; L97.222 Non-pressure chronic ulcer of left calf with fat layer exposed; L03.116 Cellulitis of left lower limb; I89.0 Lymphedema, not elsewhere classified; I48.91 Unspecified atrial fibrillation; I25.10 Atherosclerotic heart disease of native coronary artery without angina pectoris; E78.5 Hyperlipidemia, unspecified; M19.90 Unspecified osteoarthritis, unspecified site; N40.0 Benign prostatic hyperplasia without lower urinary tract symptoms; I11.0 Hypertensive heart disease with heart failure; I50.9 Heart failure, unspecified; Z96.652 Presence of left artificial knee joint

== ENCOUNTER → 2020-10-07 | Outpatient (CLI) | payer MEDICARE ==
[~2020-10-07] MED LIST changes: -AZITHROMYC200 MG/52 PO; -CEFTRIAXONE2 G1 IM; -COZAAR 50 MG TA50 M1 PO; +COZAAR 50 MG TA50 M2 PO; -DEXAMETHASONE 44 M1 PO; -FINASTERIDE5 MG PO; -LOPRESSOR50 MG PO; -METOLAZONE 5 MG5 MG PO; -NORCO 10-325 T1 EACH PO; -SUPER THERAVIT1 EACH PO; -TOPROL XL25 MG PO; -TYLENOL325 MG PO; -VENTOLIN HFA 1818 GM INH
== END ==
LOC: M.WC 10:43
PROVIDERS: ATTEND Surgery
DX: E11.622 Type 2 diabetes mellitus with other skin ulcer (principal); I87.332 Chronic venous hypertension (idiopathic) with ulcer and inflammation of left lower extremity; L97.222 Non-pressure chronic ulcer of left calf with fat layer exposed; L03.116 Cellulitis of left lower limb; I89.0 Lymphedema, not elsewhere classified; I48.91 Unspecified atrial fibrillation; I25.10 Atherosclerotic heart disease of native coronary artery without angina pectoris; E78.5 Hyperlipidemia, unspecified; M19.90 Unspecified osteoarthritis, unspecified site; I11.0 Hypertensive heart disease with heart failure; I50.9 Heart failure, unspecified; N40.0 Benign prostatic hyperplasia without lower urinary tract symptoms; Z96.652 Presence of left artificial knee joint; Z79.01 Long term (current) use of anticoagulants

== ENCOUNTER 2020-10-14 09:29 | Inpatient (IN) | payer MEDICARE ==
[~2020-10-14] VITALS: Ht 175.3 cm; Wt 91.4 kg
[~2020-10-14 09:29] MED LIST changes: +COZAAR 50 MG TA50 M1 PO; -COZAAR 50 MG TA50 M2 PO
[2020-10-14 09:46] VITALS: BP 117/66
[2020-10-14 09:55] LABS: HEMATOCRIT 37.7 % (42.0-52.0); HEMOGLOBIN 12.7 gm/dL (14.0-18.0); MCH 30.6 pg (26.0-34.0); MCHC 33.6 g/dL (28.0-37.0); MCV 91.2 fL (80.0-100.0); MPV 9.7 fl. (7.2-11.1); NUCLEATED RBCS 0 /100WBC; PLATELET COUNT* 149 thou/uL (150-400); RBC 4.13 mil/uL (4.50-6.00); RDW-CV 15.7 % (10.5-14.5); WBC 16.1 thou/uL (4.0-11.0)
[2020-10-14] MEDS ORDERED: AZITHROMYC200 MG/52 PO (10:09)
[2020-10-14] MEDS ORDERED: CEFTRIAXONE2 G1 IM (10:10)
[2020-10-14] MEDS ORDERED: METOLAZONE 5 MG5 MG PO (10:11)
[2020-10-14] MEDS ORDERED: SUPER THERAVIT1 EACH PO (10:11)
[2020-10-14] MEDS ORDERED: TOPROL XL25 MG PO (10:11)
[2020-10-14] MEDS ORDERED: FINASTERIDE5 MG PO (10:11)
[2020-10-14] MEDS ORDERED: DEXAMETHASONE 44 M1 PO (10:11)
[2020-10-14] MEDS ORDERED: ONGLYZA5 MG PO (10:13)
[2020-10-14] MEDS ORDERED: VENTOLIN HFA 1818 GM INH (10:13)
[2020-10-14] MEDS ORDERED: TYLENOL325 MG PO (10:13)
[2020-10-14 10:16] LABS: CALCIUM 10.2 mg/dL (8.5-10.1); CREATININE 1.4 mg/dL (0.6-1.3); POTASSIUM 3.3 mmol/L (3.5-5.1)
[2020-10-14 10:21] LABS: PROTIME 45.3 Seconds (9.20-11.50)
[2020-10-14 10:25] LABS: ALBUMIN 2.7 g/dL (3.4-5.0); INR 4.7; TOTAL BILIRUBIN 0.7 mg/dL (<0.1-1.0); TOTAL PROTEIN 6.1 g/dL (6.4-8.2)
[2020-10-14 10:41] LABS: ABSOLUTE LYMPHOCYTES 0.3 thou/uL (0.8-5.3); ABSOLUTE NEUTROPHILS 15.8 thou/uL (1.6-8.1); PLATELET ESTIMATE DECREASED
[2020-10-14 10:42] LABS: BURR CELLS 1+; OVALOCYTES Occasional
[2020-10-14 10:43] LABS: ANISOCYTOSIS 1+; MICROCYTES Occasional
[2020-10-14 10:44] LABS: POIKILOCYTOSIS 1+
[2020-10-14 11:48] LABS: BE -1.1 mmol/L (-2 to +3); PCO2 39.5 mmHg (35.0-45.0); PO2 72.7 mmHg (75.0-100.0); pH 7.395 (7.340-7.450)
--- NOTE | 2020-10-14 13:53 | EKG ---
[place] [address] ELECTROCARDIOGRAM REPORT Name: ERNST ARENAS Room: [place] [address] ADM IN [facility]#: [id number] Admission: 10/14/20 Attend Phys: Vini Allen Discharge: Date of : 43 Date of Service: 10/14/20 0942 Report #: [id number] THIS REPORT FOR: //name// [facility] ED Test Date: 2020-10-14 Test Time: 09:42:38 Pat Name: ERNST ARENAS Department: Room: [facility] Gender: M Relay Dispatcher: RAMON : 1945 Requested By: Russel Carlos Order Number: [id number] MD: Colton Christiansen Measurements Intervals [place] Rate: 67 P: 0 GA: 246 QRS: -63 QRSD: 178 T: 118 QT: 460 QTc: 486 Interpretive Statements Ventricular-paced rhythm No further analysis attempted due to paced rhythm Compared to ECG 05/09/2018 13:15:08 No significant changes Electronically Signed On 10-14-2020 13:52:57 PC MAINTENANCE TECHNICIAN by Colton Christiansen [email or web address] <ELECTRONICALLY SIGNED> By: Colton Christiansen MD, [facility] 10/14/20 1352 0942 0942 Colton Christiansen MD, [facility] /EPI
[2020-10-14 14:25] VITALS: BP 113/66
[2020-10-14 14:45] VITALS: BP 110/62
[2020-10-14 16:00] VITALS: BP 108/63
[2020-10-14] MEDS ORDERED: LOPRESSOR50 MG PO (16:42)
[2020-10-14] MEDS ORDERED: NORCO 10-325 T1 EACH PO (16:45)
--- NOTE | 2020-10-14 19:30 | NUR ---
RECEIVED REPORT FROM ER. PT ARRIVED TO TELE FLOOR AROUND 1445. ASSUMED CARE. ADMISSION ASSESSMENT, EDUCATION AND HISTORY COMPLETED CHARTED. MEDS PER EMAR. DAUGHTER CHRISTINE CALLED AND RECEIVED UPDATE ([phone]). PT FAILED BEDSIDE SWALLOW. ST CONSULT PLACED. PT DETERIORATED THIS EVENING, O2 SATS IN LOW 80'S. RT PAGED AND NONREBREATHER PLACED. ABGS AND BIPAP ORDERED. PULM CONSULTED. WOUND CARE DONE TO LLE, PICTURE TAKEN. PT TURNED Q2HRS FOR COMFORT. PT CURRENTLY RESTING ON THE BIPAP. FALL PRECAUTIONS IN PLACE.DIMENSION STONE QUARRY SUPERVISOR IN PLACE. HOURLY ROUNDING. CALL LIGHT WITHIN REACH.
[2020-10-14 20:30] VITALS: BP 127/77
[2020-10-14 20:41] LABS: BE -2.3 mmol/L (-2 to +3); PCO2 40.8 mmHg (35.0-45.0); pH 7.366 (7.340-7.450)
[2020-10-15] VITALS (20 sets, daily range): BP systolic 114–152; BP diastolic 63–76
--- NOTE | 2020-10-15 06:04 | NUR ---
PATIENT HAS SLEPT OFF AND ON BUT VERY RESTLESS DURING THE NIGHT. PATIENT CURRENTLY ON BI-PAP AND VSS WITH 50% OXYGEN. PATIENT HAS REMAINED NPO D/T FAILED BEDSIDE SWALLOW YESTERDAY ON 10/14/20. DAY NURSE NOTIFIED DR. GOODRICH REGARDING THE PATIENT FAILING BEDSIDE SWALLOW TEST. PATIENT VERY ANXIOUS AND FIGHTING THE BI-PAP AND HAS VERY LABORED BREATHING. ASSESSMENT CHARTED. PATIENT USES BEDSIDE URINAL WITH ASSISTANCE. BRENT CARE PERFORMED. IV IN RIGHT AC-SL. FALL PRECAUTIONS IN PLACE AND HOURLY ROUNDS MADE. WILL CONTINUE WITH PLAN OF CARE AND NURSING TO MONITOR.
--- NOTE | 2020-10-15 10:54 | NUR ---
WOUND NURSE: PATIENT SEEN TO INIIAL ASSESSMENT OF LEFT LOWER LEG VENOUS LEG ULCER. MEASURES 3.0 X 3.0 X 0.2 CM. CONTAINS MOSTLY YELLOW SLOUGH AND REDDISH BLACK DRIED EXUDATE IN THE WOUND BED, THERE IS A SMALL AMOUNT OF PINK AND RED GRANULATION TISSUE ALONG ONE OF THE EDGES. THERE IS SCANT AMOUNT OF SEROUS DRAINAGE NOTED. THERE IS 1 TO 2 + PITTING EDEMA IN LE NOTED. TOES ARE PALE PINK AND WITH CAPILLARY REFILL < 3 SECONDS. CLEANSED WITH SOAP AND WATER, RINSED WITH WATER, THEN PATTED DRY. APPLIED MEDIHONEY UNDER AQUACEL UNDER ABD TO WOUND, THEN WRAPPED TOES TO KNEE WITH KERLEX ROLL GAUZE UNDER TRACE WRAP. THIS WAS TOLERATED WELL BY THE PATIENT. PATIENT IS NOT TEACHEABLE AT THIS TIME. PATIENT REQUIRES MAX ASSIST WITH REPOSITIONING IN BED, IS NOT ON A SPECIALTY BED AT THIS TIME. PATIENT WITH REDDENED BUTTOCKS BUT WITHOUT SKIN BREAK DOWN. MOISTURE BARRIER APPLIED TO AFFECTED AREA.
[2020-10-15 16:17] LABS: BE -2.1 mmol/L (-2 to +3); PCO2 36.5 mmHg (35.0-45.0); pH 7.402 (7.340-7.450)
[2020-10-15 16:31] LABS: ABSOLUTE BASOPHILS 0.1 thou/uL (0.0-0.2); ABSOLUTE LYMPHOCYTES 0.1 thou/uL (0.8-5.3); ABSOLUTE MONOCYTES 0.2 thou/uL (0.0-1.2); ABSOLUTE NEUTROPHILS 17.1 thou/uL (1.6-8.1); BASOPHILS 0.4 %; HEMATOCRIT 38.1 % (42.0-52.0); HEMOGLOBIN 12.5 gm/dL (14.0-18.0); LYMPHOCYTES 0.7 %; MCH 30.6 pg (26.0-34.0); MCHC 32.8 g/dL (28.0-37.0); MONOCYTES 1.4 %; NUCLEATED RBCS 0 /100WBC; PLATELET COUNT* 155 thou/uL (150-400); POLYS 97.5 %; RDW-CV 16.3 % (10.5-14.5); WBC 17.5 thou/uL (4.0-11.0)
[2020-10-15 16:47] LABS: ALBUMIN 2.4 g/dL (3.4-5.0); CALCIUM 10.3 mg/dL (8.5-10.1); CREATININE 1.4 mg/dL (0.6-1.3); POTASSIUM 3.5 mmol/L (3.5-5.1); TOTAL BILIRUBIN 0.6 mg/dL (<0.1-1.0); TOTAL PROTEIN 5.7 g/dL (6.4-8.2)
--- NOTE | 2020-10-15 18:15 | NUR ---
RECEIVED REPORT. ASSUMED CARE OF PT AROUND 0730. AM ASSESSMENT AND VITALS COMPLETED CHARTED. MEDS PER EMAR. SPARE HAND IN PLACE. PT TURNED Q2HRS. WOUND NURSE IN TO SEE PT THIS AM AND PERFORMED WOUND CARE TO LLE AND [facility]. PT TACHYPNIC ON THE BIPAP, BREATHING LABORED. PAGED FOR IV MEDS FOR ANXIETY AND TO INFORM OF PT STATUS. IV MEDS GIVEN WITH SOME DECREASE IN RESPIRATIONS. PT NPO PER NURSE DISCRETION. PT FOUND MULTIPLE TIMES IN ROOM WITH BIPAP TUBE PULLED OFF AND AT TIMES BIPAP MASK PULLED OFF. AROUND 1535 PT FOUND IN ROOM WITH MASK OFF AGAIN AND O2 SATS AT 33% - RAPID RESPONSE CALLED. BIPAP REPLACED AND PT RECOVERED BACK UP TO 02 SATS IN THE 90'S. DR GOODRICH AND DR العلي PAGED. MULTIPLE DISCUSSIONS WITH PT'S SIGNIFICANT OTHER AND DAUGHTER CHRISTINE ENSUED - UPDATE GIVEN ON PT AND CODE STATUS DISCUSSED. DR GOODRICH SPOKE WITH FAMILY AND SO WELL - ORDER WAS GIVEN FOR PT TO BE DNR/DNI PER FAMILY WISHES. PLAN FORMED FOR PT TO TRANSFER TO ICU FOR CLOSER OBSERVATION ON THE BIPAP. PT TRANSFERED TO ROOM 001, REPORT GIVEN TO GENE BRANCH. ALL BELONGINGS SENT OVER WITH PT. ROMINA AND CHRISTINE CALLED AND UPDATED.
--- NOTE | 2020-10-15 20:40 | NUR ---
175: PT ARRIVED WITH COVID UNIT SARINA ABUM AND A TECH. PT ARRIVED ON NON REBREATHER AND WAS QUICKLY PLACED ON BIPAP. PT FREQUENTLY TRYING TO PULL HIS BIPAP OF. HE DESATS VERY QUICKLY WHEN BIPAP IS PULL OFF. PT IS TOO CONFUSED AND DOESNOT REORIENT EASILY. PT STABLE WHEN BIPAP REMIAINS ON HIS FACE.
[2020-10-16] VITALS (61 sets, daily range): BP systolic 108–144; BP diastolic 68–81
[2020-10-16 03:44] LABS: ABSOLUTE LYMPHOCYTES 0.2 thou/uL (0.8-5.3); ABSOLUTE MONOCYTES 0.1 thou/uL (0.0-1.2); ABSOLUTE NEUTROPHILS 11.9 thou/uL (1.6-8.1); HEMATOCRIT 37.4 % (42.0-52.0); HEMOGLOBIN 12.2 gm/dL (14.0-18.0); LYMPHOCYTES 1.3 %; MCH 29.9 pg (26.0-34.0); MCHC 32.5 g/dL (28.0-37.0); MCV 91.9 fL (80.0-100.0); MONOCYTES 1.2 %; NUCLEATED RBCS 0 /100WBC; PLATELET COUNT* 153 thou/uL (150-400); POLYS 97.5 %; RBC 4.07 mil/uL (4.50-6.00); WBC 12.2 thou/uL (4.0-11.0)
[2020-10-16 03:49] LABS: APTT 51.8 Seconds (25.0-31.3); PROTIME 64.3 Seconds (9.20-11.50)
[2020-10-16 03:55] LABS: ALBUMIN 2.3 g/dL (3.4-5.0); CALCIUM 10.4 mg/dL (8.5-10.1); CREATININE 1.1 mg/dL (0.6-1.3); MAGNESIUM 2.2 mg/dL (1.8-2.4); POTASSIUM 3.5 mmol/L (3.5-5.1); TOTAL BILIRUBIN 0.6 mg/dL (<0.1-1.0); TOTAL PROTEIN 5.6 g/dL (6.4-8.2)
[2020-10-16 04:31] LABS: INR 6.8
--- NOTE | 2020-10-16 11:14 | NUR ---
RIGHT BASILIC VESSEL ACCESED FOR 5 AMHARIC TRIPLE LUMEN PICC. LINE PRE-TRIMMED TO 41 CM AND ADVANCED TO THE ZERO BRIDGETTE WITH NO RESISTANCE MET. UPPER ARM CIRCUMFERENCE ABOVE INSERTION SITE= 13". SHERLOCK MAGNET AND 3CG CONFIRMATION UNOTAINABLE DUE TO DUAL CHAMBER PACEMAKER. POST PROCEDURE CHEST X-RAY SHOWS LINE TRAVELS DOWN WITH PACEMAKER WIRES AND TERMINATES BELOW THE MARI. GUIDE WIRE REMOVED, LINE FLUSHED AND INSERTION SITE DRESSED. REPORT GIVEN TO TONI BRANCH.
[2020-10-16 15:04] LABS: BE 4.2 mmol/L (-2 to +3); PCO2 VENOUS 42.5 mmHg (41.0-51.0); PO2 VENOUS 39.8 mmHg (35.0-45.0)
--- NOTE | 2020-10-16 15:05 | NUR ---
ICU rounds: Covid positive. Bipap 100%. Precedex. Picc placed. On remdisivir. CM spoke with Pt's SO, Lacey, via phone. Per Lacey, Pt has been skilled at [facility]. Pt was at [facility] for a week prior to skilled stay. Per SO, Pt had developed weakness in his legs several months ago, they were unable to determine why Pt was having weakness during his hospital stay, has a diabetic wound on his left leg and has been seeing Dr St at [facility] wound center. Pt has an old wound on his right leg. Prior to [facility] hospitalization, Pt resided at home alone in [place]. Pt recently was able to get in home help through [facility], Pt received 2hrs/day for 3 days/week, they assisted with cleaning and running errands. Pt had not driven since April when he had a fall at home. Pt uses a rollator for mobility. Pt has 2 kids that have only recently started being in Pt's life, Pt does not have a DPOA or AD, but per SO and kids, Pt would not want to be on a ventilator. Pt had planned to have his body donated to [facility] [facility] (?), SO stated that she contacted them today and was told that they would not accept his body d/t his positive covid status. Pt's dtr is Renita Cornell [phone]
--- NOTE | 2020-10-16 15:26 | EKG ---
[place] [address] ELECTROCARDIOGRAM REPORT Name: ERNST ARENAS Room: [address] IN M.R.#: [id number] Admission: 10/14/20 Attend Phys: Vini Allen Discharge: Date of : 43 Date of Service: 10/15/20 1553 Report #: [id number] THIS REPORT FOR: //name// [facility] Test Date: 2020-10-15 Test Time: 15:53:19 Pat Name: ERNST ARENAS Department: Room: [address] Gender: M Adult Family Home Program Manager: AT : 1945 Requested By: Vini Allen Order Number: [id number] Tatiana MD: Colton Christiansen Measurements Intervals [place] Rate: 65 P: 0 AL: 48 QRS: -62 QRSD: 182 T: 117 QT: 495 QTc: 515 Interpretive Statements Ventricular-paced complexes with pvc No further analysis attempted due to paced rhythm Compared to ECG 10/14/2020 09:42:38 No significant changes Electronically Signed On 10-16-2020 15:26:43 HELMINTHOLOGY TEACHER by Colton Christiansen [email or web address] <ELECTRONICALLY SIGNED> By: Colton Christiansen MD, [facility] 10/16/20 1526 1553 1553 Colton Christiansen MD, [facility] /EPI
--- NOTE | 2020-10-16 17:36 | NUR ---
NO ACUTE CHANGES THIS SHIFT. PATIENT RESTLESS DURING THE MORNING, TAKES OFF BIPAP AND DESTATS INTO THE 60S. SEDATION TITRATED AND MITTENS APPLIED.
--- NOTE | 2020-10-16 22:53 | NUR ---
ASSUMED CARE OF PT AT 1900. PT IS SEDATED WITH PRESIDEX AT THIS TIME. VSS. PERRLA. NO SIGNS OR SYMPTOMS OF PAIN. PT IS A Q2 TURN. PT IS V PACED ON THE TELEMETRY. PT IS RESTING COMFORTABLY IN BED. RESPIRATIONS ARE EVEN AND NONLABORED. WILL CONTINUE TO MONITOR PT.
--- NOTE | 2020-10-16 23:05 | NUR ---
PT IS ON BIPAP TOLERATING WELL AT THIS TIME.
[2020-10-17] VITALS (32 sets, daily range): BP systolic 64–151; BP diastolic 36–83
[2020-10-17 05:04] LABS: ABSOLUTE LYMPHOCYTES 0.2 thou/uL (0.8-5.3); ABSOLUTE MONOCYTES 0.2 thou/uL (0.0-1.2); ABSOLUTE NEUTROPHILS 10.4 thou/uL (1.6-8.1); BASOPHILS 0.1 %; HEMATOCRIT 37.1 % (42.0-52.0); HEMOGLOBIN 12.4 gm/dL (14.0-18.0); LYMPHOCYTES 1.5 %; MCH 30.7 pg (26.0-34.0); MCHC 33.4 g/dL (28.0-37.0); MONOCYTES 2.2 %; MPV 9.7 fl. (7.2-11.1); NUCLEATED RBCS 0 /100WBC; PLATELET COUNT* 153 thou/uL (150-400); POLYS 96.2 %; RBC 4.03 mil/uL (4.50-6.00); RDW-CV 16.5 % (10.5-14.5); WBC 10.8 thou/uL (4.0-11.0)
[2020-10-17 05:18] LABS: APTT 43.4 Seconds (25.0-31.3); PROTIME 76.7 Seconds (9.20-11.50)
[2020-10-17 05:21] LABS: ALBUMIN 2.1 g/dL (3.4-5.0); CALCIUM 10.2 mg/dL (8.5-10.1); MAGNESIUM 2.3 mg/dL (1.8-2.4); POTASSIUM 3.2 mmol/L (3.5-5.1); TOTAL BILIRUBIN 0.6 mg/dL (<0.1-1.0); TOTAL PROTEIN 5.3 g/dL (6.4-8.2)
[2020-10-17 05:55] LABS: INR > 8.0
--- NOTE | 2020-10-17 11:52 | NUR ---
ICU rounds: Covid positive. Bipap. Precedex. Mitts. Opens eyes, but not following commands. Picc line. Valladares. Dressing change for jessa stasis ulcers
[2020-10-17 17:26] LABS: BE 5.1 mmol/L (-2 to +3); PCO2 VENOUS 42.6 mmHg (41.0-51.0); PO2 VENOUS 47.5 mmHg (35.0-45.0)
[2020-10-17 17:31] LABS: CALCIUM 10.4 mg/dL (8.5-10.1); CREATININE 1.1 mg/dL (0.6-1.3); MAGNESIUM 2.1 mg/dL (1.8-2.4); POTASSIUM 3.6 mmol/L (3.5-5.1)
--- NOTE | 2020-10-17 17:55 | NUR ---
ORDERS GIVEN TO DISCONTINUE BIPAP AND CONTINUE WITH COMFORT CARE. MORPHINE AND ATIVAN GIVEN. WILL CONTINUE PLAN OF CARE
--- NOTE | 2020-10-17 17:59 | NUR ---
1200 AND 1600 ASSESSMENTS UNCHANGED.
--- NOTE | 2020-10-17 19:53 | NUR ---
DR. GOODRICH SPOKE WITH THE FAMILY AND PATIENT PLACED ON COMFORT MEASURES. BIPAP DISCONTINUED. PRN ATIVAN AND MORPHINE GIVEN TO PREVENT AIR HUNGER. AT 1845 PATIENT WAS FOUND WITH ABSENCE OF RESP AND PULSE. PRONOUCED BY TWO RNS. ALL DEPARTMENTS NOTIFIED OF .
--- NOTE | 2020-10-18 22:38 | CON ---
[address] [address] CONSULTATION Name: ERNST ARENAS Brianna Room: [address] IN M.R.#: [id number] Admission: 10/14/20 Attend Phys: Marita Vigil Discharge: 10/17/20 Date of : 43 Report #: [id number] THIS REPORT FOR: cc: Godwin Cornejo MD, Robert D. MD ~ Donnell Carter MD DATE OF SERVICE: 10/15/2020 Consult has been requested by Dr. Allen. INDICATION FOR CONSULTATION: Acute hypoxemic respiratory failure secondary to COVID-19. HISTORY OF PRESENT ILLNESS: A 75-year-old gentleman with past medical history as mentioned below. He has had aortic valve replacement, what type of valve he has is not known to me. However, the patient is on long-term anticoagulation with Coumadin. There is no known history of smoking. At this time, the patient was admitted yesterday, presentation was with acute shortness of breath. The patient is from a nursing facility and is reported to have had increasing shortness of breath as well as cough as well as a fever. The patient initially was on 15 liters of oxygen. His oxygenation improved to 5 liters yesterday, the patient became more hypoxemic during the night. Initially was on a heated high-flow nasal cannula, was markedly tachypneic and therefore had to be placed on a BiPAP. The patient currently does appear to be maintaining his respiratory status and he is about on 60% BiPAP with respiratory rate just under 30. The patient, however, is confused and is repeatedly pulling off the BiPAP I am told that a rapid response therefore was called and his O2 saturation was in the 60s this afternoon. The patient subsequently had been placed back on a BiPAP when I entered the room, the patient again was confused. He had removed the BiPAP and therefore was on no oxygen either. I quickly obtained assistance and we did put the BiPAP back on, upon being placed back on the BiPAP the patient's initial O2 saturation with 60% FiO2 was 80%. I suspect that his O2 saturation was much lower when I had initially entered the room. With the BiPAP in place we were able to again improve his oxygenation to the low 90s with 60% FiO2, initially 100% was administered. The patient, however, remained confused and was not keeping the BiPAP mask in place. The patient at this time is confused. He is good providing random answers when asked whether he should be intubated or not I do not feel that he is able to understand what he is being asked. The patient is unable to provide a further history or review of systems. 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 Atrial fibrillation, I do not have a measure of his left ventricular ejection fraction available. Status post pacemaker, hypertension, cardiomyopathy, hyperlipidemia, [place] [address] CONSULTATION Name: ERNST ARENAS Room: [address]#: [id number] Admission: 10/14/20 Attend Phys: Marita Vigil Discharge: 10/17/20 Date of : 43 Report #: [id number] hypertrophy, history of fall, rhabdomyolysis, dementia, anxiety, thrombocytopenia, stroke in 2020 affecting the left side and history of aphasia. SOCIAL HISTORY: There is no known history of smoking, ethanol abuse or drug abuse. The patient is a resident of a long-term care facility. CURRENT MEDICATIONS: List in [facility] reviewed. HOME MEDICATIONS: List also in [facility] reviewed. ALLERGIES: No known drug allergies. FAMILY HISTORY: There is no pertinent family history. PHYSICAL EXAMINATION: GENERAL: He is awake. He is confused. See discussion above. His O2 saturation initially was 80% when I placed him back on BiPAP. I expect him to have been much lower on his O2 saturation when I had initially entered the room when the patient was not having his BiPAP mask in place and he has removed it. He still is not tachycardic interestingly. Heart rate is around 66. Blood pressure in the range of 130-140 systolic with a blood pressure diastolic around 60-70. He is afebrile with a temperature of 36.9. When placed on BiPAP and the BiPAP was kept in place with a person in the room. he is saturating still in the low 90s with 60% BiPAP in place. His respiratory rate had increased to the 40s when I was in the room, previously charted respiratory rates are in the range of 28-30. HEENT: Head is normocephalic and atraumatic. NECK: Does not show raised JVP, asymmetry, mass or lymph nodes. CHEST: Symmetrical expansion on inspection and palpation. On auscultation, breath sounds are bilaterally equal, but decreased. There are occasional rales bilateral bases. HEART: Irregular. ABDOMEN: Soft and nontender. EXTREMITIES: Lower extremities show no edema, no calf tenderness. SKIN: Dry and intact. NEUROLOGICAL: He has had a history of stroke. At this time a detailed neurological examination is not possible. He does, however, move all extremities spontaneously. LABORATORY DATA: The patient's chest x-rays, which are consistent with ARDS secondary to COVID-19 in [facility] reviewed. The patient's lab work was also in [facility] reviewed. ASSESSMENT AND PLAN: [place] [address] CONSULTATION Name: ERNST ARENAS Room: [address] IN [facility].#: [id number] Admission: 10/14/20 Attend Phys: Marita Vigil Discharge: 10/17/20 Date of : 43 Report #: [id number] 1. Acute hypoxemic respiratory failure secondary to COVID-19. I did review with Dr. Allen and I did agree that the family's wishes regarding the patient's code status should be respected. The patient at this time is confused and I do not feel that he is able to make decisions for himself. I was subsequently told that the family has decided to have the patient a DNR and DNI. I would still favor transferring the patient to the ICU because he needs a close monitoring for management of BiPAP. Once in the ICU I recommend that we go ahead and start him on a Precedex infusion if essential, then we can give him benzodiazepines; however, I would try to limit use of benzodiazepines if feasible. If he remains confused and is not well controlled on Precedex then I may consider giving him Haldol. His INR is elevated, he may need more arterial blood gases; however, I would try to limit arterial sticks. 2. COVID-19. He is on Solu-Medrol, will continue. I did adjust the dose. I recommend starting remdesivir. We will also go ahead and give him one unit of convalescent plasma. The patient is unable to consent. Therefore, I ordered it as an emergency exception, I will be inclined to give him a subsequent second unit of convalescent plasma also 3. Pulmonary infiltrates/ARDS secondary to COVID-19. I suspect that there is a secondary bacterial infection as well. Therefore, I have broadened his antibiotic coverage by switching his ceftriaxone over to Zosyn. Noted the patient may have a component of aspiration as well. He remains on azithromycin. 4. Aortic valve replacement. He is on long-term anticoagulation. I would plan to continue the same. I briefly held his Coumadin for now as his INR is elevated. Depending on his course, he would need either parenteral anticoagulation to be started soon or Coumadin restarted soon. 5. Acute renal insufficiency. We will need to watch his fluid status closely and adjust fluids diuresis accordingly. 6. Diabetes. He does have significant hyperglycemia. For now, I will go ahead and order an insulin sliding scale. The patient may need a long-acting insulin ordered. 7. Gastrointestinal prophylaxis, proton pump inhibitor. The patient is critically ill at this time. Total time spent providing critical care to this patient today exceeds 45 minutes. <ELECTRONICALLY SIGNED> By: Donnell Carter MD 10/18/20 [id number] Carter MD /nt
== END 2020-10-17 18:45 | DRG 177 ==
LOC: M.ERS 09:29 → M.ORTHSURG 12:05 → M.TBA-ER 12:05 → M.ORTHSURG 14:42 → M.ICU 10-15 18:06
PROVIDERS: Family Medicine; Internal Medicine Critical Care Medicine; ADMIT Internal Medicine; ATTEND Internal Medicine
PROC: 5A09457 Assistance with Respiratory Ventilation, 24-96 Consecutive Hours, Continuous Positive Airway Pressure (ICD-10-PCS; principal; 2020-10-14)
PROC: XW033E5 Introduction of Remdesivir Anti-infective into Peripheral Vein, Percutaneous Approach, New Technology Group 5 (ICD-10-PCS; 2020-10-15)
PROC: XW13325 Transfusion of Convalescent Plasma (Nonautologous) into Peripheral Vein, Percutaneous Approach, New Technology Group 5 (ICD-10-PCS; 2020-10-15)
PROC: 05H533Z Insertion of Infusion Device into Right Subclavian Vein, Percutaneous Approach (ICD-10-PCS; 2020-10-16)
DX: U07.1 COVID-19 (principal); J96.22 Acute and chronic respiratory failure with hypercapnia; J96.21 Acute and chronic respiratory failure with hypoxia; I21.4 Non-ST elevation (NSTEMI) myocardial infarction; J12.82 Pneumonia due to coronavirus disease 2019; N17.9 Acute kidney failure, unspecified; I42.9 Cardiomyopathy, unspecified; I48.20 Chronic atrial fibrillation, unspecified; I50.40 Unspecified combined systolic (congestive) and diastolic (congestive) heart failure; J44.0 Chronic obstructive pulmonary disease with (acute) lower respiratory infection; Z96.652 Presence of left artificial knee joint; E78.5 Hyperlipidemia, unspecified; N40.1 Benign prostatic hyperplasia with lower urinary tract symptoms; F03.90 Unspecified dementia, unspecified severity, without behavioral disturbance, psychotic disturbance, mood disturbance, and anxiety; F41.9 Anxiety disorder, unspecified; E11.9 Type 2 diabetes mellitus without complications; K57.90 Diverticulosis of intestine, part unspecified, without perforation or abscess without bleeding; G47.00 Insomnia, unspecified; Z66 Do not resuscitate; I11.0 Hypertensive heart disease with heart failure; Z51.5 Encounter for palliative care; Z95.2 Presence of prosthetic heart valve; Z95.0 Presence of cardiac pacemaker; Z86.73 Personal history of transient ischemic attack (TIA), and cerebral infarction without residual deficits; Z79.01 Long term (current) use of anticoagulants; Z79.899 Other long term (current) drug therapy; Z91.81 History of falling